=== PATIENT | female | born 1955 ===

== ENCOUNTER 2025-02-14 11:43 | Inpatient (IN) | payer OTHER ==
[~2025-02-14] VITALS: Ht 61 cm; Wt 90.7 kg
[2025-02-14 11:00] LABS: BASO % 0.7 % (0.1-1.2); EOS # 0.23 (0.04-0.54); EOS % 2.8 % (0.7-7.0); LYMPH # 2.84 (1.18-3.74); LYMPH % 35.0 % (19.3-53.1); MEAN PLATELET VOLUME 10.90 fl (9.4-12.4); MONO # 0.62 (0.24-0.82); MONO % 7.6 % (4.7-12.5); NEUT # 4.33 (1.56-6.13); NEUT % 53.5 % (34.0-71.1); RED CELL DISTRIBUTION WIDTH 14.7 % (11.6-14.4)
[2025-02-14 11:34] LABS: INR 0.97
[2025-02-14 11:41] LABS: URINE APPEARANCE Clear; URINE BACTERIA 4.7 uL (0.0-1933); URINE BILIRRUBIN Negative (NEGATIVE); URINE BLOOD Negative; URINE COLOR Yellow; URINE EPITHELIAL CELLS 4.7 uL (0.0-38.8); URINE KETONE Negative (NEGATIVE); URINE LEUKOCYTE Negative; URINE NITRATE Negative; URINE PROTEIN Negative (NEGATIVE); URINE RBC 2.4 uL (0.0-20.8); URINE UROBILINOGEN 0.2 E.U./dl; URINE WBC 2.3 uL (0.0-23.2)
[2025-02-14 11:43] LABS: URINE CAST 0.29 uL (0.0-1.40); URINE GLUCOSE >=1000 MG/DL (NEGATIVE)
[~2025-02-14 11:43] MED LIST: CITRATE OF MAG296 ML; COZAAR50 MG PO; FARXIGA10 MG PO; GLIPIZIDE XL10 MG PO; LIPITOR20 MG; METFORMIN HCL500 M3; NORVASC5 MG PO; PEPCID AC20 MG; PRILOSEC OTC20 MG; SYNTHROID100 MCG PO; TENTRAL; TRADJENTA5 MG PO; [UNRECOGNIZED DRUG - OTHER]
[2025-02-14 12:03] LABS: ALT/SGPT 20.0 U/L (12-78); AST/SGOT 16.0 U/L (15-37); BILIRUBIN TOTAL 0.39 mg/dL (0.3-1.2); BUN CREA RATIO 31.0 (7.0-25.0); CREATININE SERUM 0.78 mg/dL (0.55-1.02); GFR 73.44; GLOBULINA 3.7 G/DL (2.4-3.5); GLUCOSE FASTING 107.0 mg/dL (65-100); OSMOLALITY SERUM 286.0 MOSM/KG (275-295)
[2025-02-24] MEDS ORDERED: METRONIDAZOLE/SODIUM CHLORIDE 500 MG/100 ML PIGGYBACK IV ONE ×2 (11:10→18:20)
[2025-02-24] MEDS ORDERED: CEFTRIAXONE SODIUM 2,000 MG VIAL ONE (11:10)
[2025-02-24] MEDS ORDERED: BUPIVACAINE HCL/MPF 0.5% 30ML VIAL ONE (12:55)
[2025-02-24] MEDS ORDERED: LIDOCAINE HCL 1%/EPINEPHRINE 20ML VIAL IJ ONE (12:55)
[2025-02-24] MEDS ORDERED: ONDANSETRON HCL 2 MG/ML VIAL IV PRN (16:00)
[2025-02-24] MEDS ORDERED: MORPHINE SULFATE 4 MG/ML CARTRIDGE IV PRN (16:00)
[2025-02-24] MEDS ORDERED: DEXTROSE 50 % IN WATER 0.5 G/ML DISP.SYRIN IV PRN ×2 (16:00→18:30)
[2025-02-24] MEDS ORDERED: 0.9 % SODIUM CHLORIDE 1,000 ML IV SCH (16:00)
[2025-02-24] MEDS ORDERED: OxyCODONE HCL 5 MG TABLET (ROXICODONE) PO PRN (16:00)
[2025-02-24] MEDS ORDERED: METRONIDAZOLE/SODIUM CHLORIDE 500 MG/100 ML PIGGYBACK IV SCH (17:00)
[2025-02-24] MEDS ORDERED: HYOSCYAMINE SULFATE 0.125 MG TAB.SUBL SL SCH (17:00)
[2025-02-24] MEDS ORDERED: GABAPENTIN 300 MG CAPSULE PO SCH (17:00)
[2025-02-24] MEDS ORDERED: INSULIN LISPRO 1,000 UNIT/10 ML UNITS SUBCUTANEO PRN (18:30)
[2025-02-24 19:09] LABS: BASO % 0.3 % (0.1-1.2); EOS # 0.01 (0.04-0.54); EOS % 0.1 % (0.7-7.0); LYMPH # 0.82 (1.18-3.74); LYMPH % 5.9 % (19.3-53.1); MEAN PLATELET VOLUME 10.50 fl (9.4-12.4); MONO # 0.75 (0.24-0.82); MONO % 5.4 % (4.7-12.5); NEUT # 12.32 (1.56-6.13); NEUT % 87.8 % (34.0-71.1); RED CELL DISTRIBUTION WIDTH 15.2 % (11.6-14.4)
[2025-02-24 19:38] LABS: BUN CREA RATIO 18.0 (7.0-25.0); CREATININE SERUM 0.96 mg/dL (0.55-1.02); GFR 57.8; GLUCOSE FASTING 177.0 mg/dL (65-100); OSMOLALITY SERUM 285.0 MOSM/KG (275-295)
[2025-02-24 19:49] VITALS: BP 134/76; O2SAT 95
[2025-02-24] MEDS ORDERED: ACETAMINOPHEN 500 MG GEL..CAP PO SCH (20:00)
[2025-02-24] MEDS ORDERED: CELECOXIB 200 MG CAPSULE PO SCH (21:00)
[2025-02-24] MEDS ORDERED: FAMOTIDINE/PF 20 MG/2 ML VIAL IV PUSH SCH (21:00)
[2025-02-24] MEDS ORDERED: DONEPEZIL HCL 10 MG TABLET PO SCH (21:00)
[2025-02-24 21:03] VITALS: O2SAT 94
[2025-02-25] VITALS (8 sets, daily range): BP systolic 109–127; BP diastolic 65–70; O2SAT 95–97
[2025-02-25] MEDS ORDERED: DIPHENHYDRAMINE HCL 50 MG/ML VIAL 1ML IV ONE (04:00)
[2025-02-25] MEDS ORDERED: PATIENTS OWN MEDICATION (MEDICAMENTO EN PISO) PO SCH (06:00)
[2025-02-25] MEDS ORDERED: AMLODIPINE BESYLATE 5 MG TABLET PO SCH (09:00)
[2025-02-25] MEDS ORDERED: LOSARTAN POTASSIUM 50 MG TABLET PO SCH (09:00)
[2025-02-25 10:16] LABS: BASO % 0.3 % (0.1-1.2); EOS # 0.09 (0.04-0.54); EOS % 1.0 % (0.7-7.0); LYMPH # 1.86 (1.18-3.74); LYMPH % 21.4 % (19.3-53.1); MEAN PLATELET VOLUME 10.80 fl (9.4-12.4); MONO # 0.75 (0.24-0.82); MONO % 8.6 % (4.7-12.5); NEUT # 5.93 (1.56-6.13); NEUT % 68.5 % (34.0-71.1); RED CELL DISTRIBUTION WIDTH 15.2 % (11.6-14.4)
[2025-02-25 10:51] LABS: BUN CREA RATIO 17.0 (7.0-25.0); CREATININE SERUM 0.92 mg/dL (0.55-1.02); GFR 60.7; GLUCOSE FASTING 123.0 mg/dL (65-100); OSMOLALITY SERUM 284.0 MOSM/KG (275-295)
[2025-02-25] MEDS ORDERED: ENOXAPARIN SODIUM 40 MG/0.4 ML SYRINGE SUBCUTANEO SCH (17:00)
[2025-02-25] MEDS ORDERED: ATORVASTATIN CALCIUM 20 MG TABLET PO SCH (17:00)
[2025-02-26] VITALS (7 sets, daily range): BP systolic 126–134; BP diastolic 62–73; O2SAT 94–99
[2025-02-26 08:05] LABS: BASO % 0.7 % (0.1-1.2); EOS # 0.19 (0.04-0.54); EOS % 2.7 % (0.7-7.0); LYMPH # 1.96 (1.18-3.74); LYMPH % 27.8 % (19.3-53.1); MEAN PLATELET VOLUME 11.00 fl (9.4-12.4); MONO # 0.70 (0.24-0.82); MONO % 9.9 % (4.7-12.5); NEUT # 4.11 (1.56-6.13); NEUT % 58.5 % (34.0-71.1); RED CELL DISTRIBUTION WIDTH 15.3 % (11.6-14.4)
[2025-02-26 08:39] LABS: BUN CREA RATIO 16.0 (7.0-25.0); CREATININE SERUM 0.75 mg/dL (0.55-1.02); GFR 76.84; GLUCOSE FASTING 95.0 mg/dL (65-100); OSMOLALITY SERUM 286.0 MOSM/KG (275-295)
[2025-02-26] MEDS ORDERED: ENOXAPARIN SODIUM 40 MG/0.4 ML SYRINGE SUBCUTANEO SCH (09:00)
[2025-02-27 00:41] VITALS: BP 135/79; O2SAT 98
[2025-02-27 06:05] VITALS: O2SAT 97
[2025-02-27 08:42] VITALS: BP 133/67; O2SAT 98
[2025-02-27] MEDS ORDERED: HYOSCYAMINE0.125 M1 SL (10:38)
[2025-02-27] MEDS ORDERED: PEPCID AC20 MG PO (10:39)
[2025-02-27] MEDS ORDERED: TRAM1TAB98 PO (10:39)
== END 2025-02-27 12:40 | disposition home or self-care (01) | DRG 330 ==
LOC: SURH 02-21 12:30 → O/R 02-24 11:00 → SURG 02-24 11:00
PROVIDERS: Internal Medicine Geriatric Medicine; ADMIT Surgery; ATTEND Surgery
PROC: 0UQG4ZZ Repair Vagina, Percutaneous Endoscopic Approach (ICD-10-PCS; 2025-02-24)
PROC: 0DJD8ZZ Inspection of Lower Intestinal Tract, Via Natural or Artificial Opening Endoscopic (ICD-10-PCS; 2025-02-24)
PROC: 0DBP8ZZ Excision of Rectum, Via Natural or Artificial Opening Endoscopic (ICD-10-PCS; 2025-02-24)
PROC: 4A12X4Z Monitoring of Cardiac Electrical Activity, External Approach (ICD-10-PCS; 2025-02-24)
PROC: 0DTN4ZZ Resection of Sigmoid Colon, Percutaneous Endoscopic Approach (ICD-10-PCS; principal; 2025-02-24 11:15)
DX: K57.20 Diverticulitis of large intestine with perforation and abscess without bleeding (principal); K63.2 Fistula of intestine; N82.3 Fistula of vagina to large intestine; I11.9 Hypertensive heart disease without heart failure